=== PATIENT | female | born 1980 | race Caucasian/White ===

== ENCOUNTER 2022-01-04 09:43 | Emergency (ER) | payer OTHER ==
[~2022-01-04] VITALS: Ht 162.6 cm; Wt 113.7 kg
== END 2022-01-04 12:35 | disposition home or self-care (01) ==
LOC: ER 09:43
DX: Z20.3 Contact with and (suspected) exposure to rabies (principal); Z23 Encounter for immunization
CPT/HCPCS: 90375; 90376